=== PATIENT | female | born 1960 | race Caucasian/White ===

== ENCOUNTER → 2016-09-10 | Day surgery (SDC) | payer BC ==
[~2016-09-10] MED LIST: ADVAIR 1001 DISK W/D PO; ADVAIR 2501 DISK W/D PO; ALBUTEROL MININEB NEB; ALBUTEROL17 GM INH; ALBUTEROL20 ml INH; ATROVENT 0.03%30 ML NS; BACITRACIN30 GM TOP; CHANTIX PO; DOXYCYCLINE HY100 M1 PO; DOXYCYCLINE PO; E-MYCIN250 MG PO; FLEXERIL PO; KEFLEX PO; LORTAB 2.5/5001 TAB PO; MEDROL PO; NO MEDICATIONS; PREDNISONE PO; PROVENTIL0.83 MG/ML IH; ROBITUSSIN COU118 ML PO; ROBITUSSIN COUG1 CAP PO; SINGULAIR PO; TYLENOL #3 PO; VIBRAMYCIN100 M1 DOB; VIBRAMYCIN100 M1 PO; ZITHROMAX PO; ZYRTEC PO
--- NOTE | ~2016-09-10 | OR ---
Unit #: [id number] #: [id number] Patient: NOEL RINCON [id number] [address] [place], [place] [address] [id number] MR#: [id number] NAME: NOEL RINCON ROOM: Date of Procedure: 09/10/2016 Admission Date: 09/10/2016 Surgeon: Yahir Zuleta M.D. : 1960 Attending Physician: Yahir Zuleta M.D. Referring Physician: Yahir Zuleta M.D. Primary Care Physician: Saray Covarrubias M.D. OPERATIVE REPORT PREOPERATIVE DIAGNOSIS Colorectal cancer screening in an average-risk patient. PROCEDURES PERFORMED Colonoscopy and polypectomy. POSTOPERATIVE DIAGNOSES 1. Single sessile polyp in mid transverse colon. This was about a 1 cm in size and was removed using snare cautery polypectomy. 2. Rest of the examination up to cecum was normal. The quality of prep was good. RECOMMENDATIONS 1. Follow up results of polyp histology. 2. Consider repeat colonoscopy in 5 years. SEDATION USED MAC. DESCRIPTION OF PROCEDURE Following detailed explanation of the potential risks and complications of a colonoscopy, namely perforation, bleeding, and complications related to sedation, the patient was brought to GI lab and laid in the left lateral decubitus position. A digital rectal examination was performed, which was normal. Lubricated tip of the Olympus video colonoscope was inserted through the anus and advanced under direct vision. The scope was advanced and passed up to sigmoid into descending colon. No diverticula were seen in this area. The scope tip was then navigated all the way up to cecum with visualization of the ileocecal valve and appendiceal orifice. Preparation was excellent with good visualization and photodocumentation was obtained. Successive segments of the colonic mucosa were examined upon withdrawal. A single sessile polyp was noted in mid transverse colon. This was about a 1 cm in size. It was removed using snare cautery polypectomy. The polyp was retrieved and sent for histology. No additional polyps noted. The patient did not have any diverticulosis nor any internal hemorrhoids. The scope was then withdrawn. The patient returned to the recovery area. She tolerated the procedure without any postprocedure complications. Dictated by... Yahir Zuleta M.D. Unit #: [id number] #: [id number] Patient: NOEL RINCON GRAHAM/osorio TD: 09/10/2016 22:31 JOB #: [id number] OPERATIVE REPORT Page 1 of 1 X Yahir Zuleta MD PROCEDURE OPERATIVE NOTE
== END | disposition home or self-care (01) ==
LOC: COPS 09:22
DX: Z12.11 Encounter for screening for malignant neoplasm of colon (principal); D12.3 Benign neoplasm of transverse colon; J45.909 Unspecified asthma, uncomplicated; J44.9 Chronic obstructive pulmonary disease, unspecified; Z87.891 Personal history of nicotine dependence; Z79.899 Other long term (current) drug therapy; Z98.890 Other specified postprocedural states
CPT/HCPCS: 88305; J2250